=== PATIENT | male | born 1945 | race Two or more races ===

== ENCOUNTER 2019-05-10 23:24 | Inpatient (IN) ==
[2019-05-11 02:29] LABS: CKMB % 5.4 %
[2019-05-11] MEDS ORDERED: DOCUSATE SODIUM 100 MG CAPSULE PO PRN (03:10)
[2019-05-11] MEDS ORDERED: MORPHINE 4 MG/1 ML VIAL IV PRN (03:10)
[2019-05-11] MEDS ORDERED: ACETAMINOPHEN 325 MG TABLET PO PRN (03:10)
[2019-05-11] MEDS ORDERED: ONDANSETRON 4 MG/2 ML VIAL IV PRN (03:10)
[2019-05-11 03:18] LABS: Troponin I 11.7 NG/ML (0.00-0.045)
[2019-05-11] MEDS ORDERED: NITROGLYCERIN SL 0.4 MG TABLET SL PRN (03:27)
[2019-05-11] MEDS ORDERED: DEXTROSE 50% 25 GM/50 ML VIAL IV PRN (04:13)
[2019-05-11] MEDS ORDERED: GLUCAGON 1 MG VIAL IM PRN (04:13)
[2019-05-11 04:35] LABS: Basophils % 0.4 % (0.0-0.8); Eosinophils # 0.1 10*3/uL (0.0-0.87); Hematocrit 41.6 VOL% (42.0-52.0); Immature Granulocytes % 0.4 %; Immature Granulocytes Absolute 0.03 #; Lymphocytes # 1.1 10*3/uL (1.4-4.0); Lymphocytes % 14.6 % (21.2-54.2); Mean Corpuscular HGB Conc 33.7 GM/DL (32-36); Mean Corpuscular Volume 92.7 FL (87-102); Mean Platelet Volume 9.8 FL (9.6-12.0); Monocytes % 7.4 % (1.7-12.7); Neutrophils % 76.2 % (38.7-73.9); Platelet Count 193 T/CUMM (130-400); Red Blood Count 4.49 MC/CUMM (3.8-5.5); Red Cell Distribution Width 13.7 % (9.3-17.3); White Blood Count 7.7 T/CUMM (4-12)
[2019-05-11 04:50] LABS: PT Patient Result 10.8 SECS
[2019-05-11 05:20] LABS: Albumin 3.5 G/DL (3.4-5.0); Bilirubin,Total 0.5 MG/DL (0.2-1.0); Osmolality,Calculated 283.4 MOS/KG (273-304); Risk Ratio 5.68; Total Protein 6.8 G/DL (6.4-8.3); VLDL CHOLESTEROL 60.4 MG/DL
[2019-05-11 06:14] LABS: Thyroid Stimulating Hormone 1.42 uIU/ml (0.358-3.74)
[2019-05-11] MEDS ORDERED: POTASSIUM CHLORIDE 20 MEQ TABLET PO PRN (08:19)
[2019-05-11] MEDS ORDERED: DIAZEPAM 5 MG TABLET PO ONE (08:57)
[2019-05-11] MEDS ORDERED: MAGNESIUM SULF RIDER 2 GM in PREMIX 1 EACH IV PRN (08:57)
[2019-05-11] MEDS ORDERED: diphenhydrAMINE CAP 25 MG CAPSULE PO ONE (08:57)
[2019-05-11] MEDS ORDERED: POTASSIUM CHLORIDE RIDER 10 MEQ in PREMIX 1 EACH IV PRN (08:57)
[2019-05-11] MEDS: INSULIN REGULAR 100 UNIT/ML SUBCUT SCH ×4 (08:59→20:43)
[2019-05-11] MEDS ORDERED: ENOXAPARIN 80 MG/0.8 ML SYRINGE SUBCUT SCH (09:00)
[2019-05-11] MEDS ORDERED: LIDOCAINE 1% 20 ML VIAL ONE (09:08)
[2019-05-11] MEDS ORDERED: HEPARIN/NACL 0.9% 2 UNITS/ML 1,000 ML IV ONE (09:08)
[2019-05-11] MEDS ORDERED: SODIUM BICARBONATE 2.4 MEQ/5 ML VIAL ONE (09:08)
[2019-05-11] MEDS: SODIUM CHLORIDE 0.45% 1,000 ML IV SCH ×2 (09:16→16:12)
[2019-05-11] MEDS: ASPIRIN EC 81 MG TABLET PO SCH (09:16)
[2019-05-11] MEDS ORDERED: MIDAZOLAM 2 MG/2 ML VIAL ONE ×2 (09:32→10:12)
[2019-05-11] MEDS ORDERED: fentaNYL 100 MCG/2 ML VIAL ONE (09:32)
[2019-05-11] MEDS ORDERED: BIVALIRUDIN 250 MG VIAL IV ONE (10:07)
[2019-05-11] MEDS ORDERED: ASPIRIN CHEW 81 MG TABLET PO ONE (10:31)
[2019-05-11] MEDS ORDERED: TICAGRELOR 90 MG TABLET ONE (10:31)
[2019-05-11] MEDS ORDERED: diphenhydrAMINE CAP 25 MG CAPSULE PO PRN (11:53)
[2019-05-11] MEDS: DICLOFENAC 1% GEL 100 GM TUBE TOP SCH ×2 (16:15→20:40)
[2019-05-11] MEDS: METOPROLOL TARTRATE 25 MG TABLET PO SCH (20:40)
[2019-05-11] MEDS ORDERED: ATORVASTATIN 80 MG TABLET PO SCH (21:00)
[2019-05-11] MEDS ORDERED: TICAGRELOR 90 MG TABLET PO SCH (21:00)
[2019-05-11] MEDS ORDERED: ATORVASTATIN 40 MG TABLET PO SCH (21:00)
[2019-05-12] MEDS: SODIUM CHLORIDE 0.45% 1,000 ML IV SCH ×2 (05:26→11:08)
[2019-05-12 05:36] LABS: Basophils # 0.1 10*3/uL (0.0-0.2); Basophils % 0.7 % (0.0-0.8); Eosinophils # 0.2 10*3/uL (0.0-0.87); Hematocrit 41.5 VOL% (42.0-52.0); Hemoglobin 14.1 GM/DL (14.0-18.0); Immature Granulocytes % 0.5 %; Immature Granulocytes Absolute 0.04 #; Lymphocytes # 1.1 10*3/uL (1.4-4.0); Lymphocytes % 14.9 % (21.2-54.2); Mean Platelet Volume 9.7 FL (9.6-12.0); Monocytes % 8.4 % (1.7-12.7); Neutrophils % 73.5 % (38.7-73.9); Platelet Count 192 T/CUMM (130-400); Red Blood Count 4.51 MC/CUMM (3.8-5.5); Red Cell Distribution Width 13.8 % (9.3-17.3); White Blood Count 7.4 T/CUMM (4-12)
[2019-05-12 05:52] LABS: Osmolality,Calculated 277.5 MOS/KG (273-304)
[2019-05-12 07:22] VITALS: BP 145/75
[2019-05-12] MEDS: METOPROLOL TARTRATE 25 MG TABLET PO SCH (08:34)
[2019-05-12] MEDS: INSULIN REGULAR 100 UNIT/ML SUBCUT SCH (08:34)
[2019-05-12] MEDS: ASPIRIN EC 81 MG TABLET PO SCH (08:34)
[2019-05-12] MEDS ORDERED: CLOPIDOGREL 300 MG TABLET PO ONE (09:00)
[2019-05-12] MEDS: DICLOFENAC 1% GEL 100 GM TUBE TOP SCH (11:08)
[2019-05-13] MEDS ORDERED: CLOPIDOGREL 75 MG TABLET PO SCH (07:00)
== END 2019-05-12 11:25 | disposition home or self-care (01) | DRG 247 ==
LOC: N.TELES 23:32 → INTOOBSV 05-11 00:53 → SUATTDRO 05-11 00:53
PROVIDERS: ADMIT Internal Medicine; ATTEND Internal Medicine Cardiovascular Disease
PROC: CLCCHCL (ICD-10-PCS; 2019-05-11 09:45)